=== PATIENT | female | born 1960 | race Caucasian/White ===

== ENCOUNTER 2016-06-19 11:42 | Emergency (ER) | payer MEDICARE, MEDICAID ==
[2016-06-19 12:06] VITALS: BP 137/88
--- NOTE | 2016-06-19 12:44 | UC ---
Lower Extremity/Ankle HPI - HPI Summary HPI Summary: The patient comes in today for: 1. Right ankle/foot pain: Onset: Yesterday. Palliative/provocative: Walking makes it worse. Quality: Ache, throbbing, and shooting at times. Region: Right foot/right ankle. Severity: 6/10 Time: Constant. Associated symptoms: Home treatment: Ice, elevated, and Tylenol. Numbness: None. Previous injury: None except slipping in the mud yesterday. * - History of Current Complaint Chief Complaint: UCLowerExtremity Stated Complaint: ANKLE PAIN Time Seen by Provider: 06/19/16 12:19 Hx Obtained From: Patient Hx Last Menstrual Period: Mirena IUD ?: No - Allergies/Home Medications Allergies/Adverse Reactions: Allergies Allergy/AdvReac Type Severity Reaction Status Date / Time Sulfa Antibiotics Allergy Rash Verified 06/19/16 11:55 Home Medications: Home Medications Amoxicillin/Clavulanate TAB* [Augmentin TAB 500 mg*] 1 tab PO BID 06/19/16 [ History Confirmed 06/19/16] Aspirin [Aspirin Adult Low Dose] 1 tab PO DAILY 06/19/16 [History Confirmed ] Cholecalciferol [Vitamin D] 1 tab PO DAILY 06/19/16 [History Confirmed 06/19/16] Divalproex Sodium [Depakote ER] 3 tab PO BEDTIME 06/19/16 [History Confirmed ] Ferrous Sulfate [Iron (Ferrous Sulfate)] 1 tab PO DAILY 06/19/16 [History Confirmed 06/19/16] Hydrochlorothiazide [Microzide-] 1 tab PO DAILY 06/19/16 [History Confirmed ] [place] Carbonate TAB* 2 tab PO BID 06/19/16 [History Confirmed 06/19/16] Multiple Vitamin [Multi Vitamin] 1 tab PO DAILY 06/19/16 [History Confirmed ] Oxybutynin TAB* [Ditropan TAB*] 1 tab PO TID 06/19/16 [History Confirmed ] QUEtiapine TAB* [Seroquel TAB*] 100 mg PO BEDTIME 06/19/16 [History Confirmed ] PMH/Surg Hx/FS Hx/Imm Hx Previously Healthy: No - hyperactive bladder, sinus infection, IBS, hiatal hernia. Endocrine History Of: Denies: Diabetes, Thyroid Disease, Hyperthyroidism, Hypothyroidism, Dyslipidemia Cardiovascular History Of: Reports: Hypertension Denies: Cardiac Disorders, Pacemaker/ICD, Myocardial Infarction, Congestive Heart Failure, Atrial Fibrillation, Deep Vein Thrombosis, Bleeding Disorders Respiratory History Of: Denies: COPD, Asthma, Bronchitis, Pneumonia, Pulmonary Embolism GI/ History Of: Reports: Gastroesophageal Reflux Denies: Ulcer, Gastrointestinal Bleed, Gall Bladder Disease, Kidney Stones, Diverticulitis, Renal Disease, Urosepsis Neurological History Of: Denies: TIA, CVA, Dementia, Seizures, Migraine Psychological History Of: Reports: Bipolar Disorder Denies: Anxiety, Depression, Schizophrenia, Post Traumatic Stress Disorder Cancer History Of: Denies: Lung Cancer, Colorectal Cancer, Breast Cancer, Prostate Cancer, Cervical Cancer Other History Of: Anticoagulant Therapy - Aspirin for general health. Negative For: HIV, Hepatitis B, Hepatitis C - Surgical History Surgical History: Yes Surgery Procedure, Year, and Place: vericose veins - Family History Known Family History: Positive: Cardiac Disease, Hypertension Negative: Diabetes - Social History Occupation: Disabled - [employer] Alcohol Use: None Substance Use Type: None Smoking Status (MU): Never Smoked Tobacco Review of Systems Constitutional: Negative Skin: Negative Eyes: Negative ENT: Negative Respiratory: Negative Cardiovascular: Negative Gastrointestinal: Negative Genitourinary: Negative Musculoskeletal: Arthralgia All Other Systems Reviewed And Are Negative: Yes Physical Exam Triage Information Reviewed: Yes Appearance: Well-Appearing, No Pain Distress - while sitting., Well-Nourished Vital Signs: Initial Vital Signs Temp 98.2 F 06/19/16 11:59 Pulse 72 06/19/16 11:59 Resp 16 06/19/16 11:59 BP 137/88 06/19/16 11:59 Pulse Ox 98 06/19/16 11:59 Vital Signs Reviewed: Yes Eyes: Positive: Conjunctiva Clear. Negative: Discharge ENT: Positive: Hearing grossly normal. Negative: Pharyngeal erythema, Nasal congestion, Nasal drainage, TM bulging, TM dull, TM red, Tonsillar swelling, Tonsillar exudate Dental: Negative: Gross Decay/Caries @, Dental Fracture @ Neck: Positive: Supple, Nontender, No Lymphadenopathy. Negative: Nuchal Rigidity Respiratory: Positive: Lungs clear, No respiratory distress, No accessory muscle use. Negative: Crackles, Wheezing Cardiovascular: Positive: RRR, No Murmur Abdomen Description: Positive: Nontender, No Organomegaly, Soft. Negative: Distended, Guarding Musculoskeletal: Positive: Strength Intact, ROM Intact, No Edema, Other: - There is tenderness to palpation along the right lateral ankle, but no marked ecchymosis. However, there is minimal plantar flexion on Sher calf compression. However, there is no depression along the Achilles tendon with slight dorsi flexion.. Negative: Strength Limited @ Neurological: Positive: Alert, Muscle Tone Normal Psychological: Positive: Age Appropriate Behavior, Consolable Skin: Negative: rashes, breakdown Diagnostics - Radiology No standard instances Xray Interpretation: No Acute Changes - NO bone abnormalities of the foot or ankel Radiology Interpretation Completed By: Radiologist Lower Extremity Course/Dx - Course Course Of Treatment: Call placed to orthopedics for management of possible Left Achilles tendon rupture. Dr. Ying called back and recommended a CAM Boot and follow up with him. Patient just wants Tylenol as needed for pain. - Differential Dx/Diagnosis Provider Diagnoses: Ankle sprain--right. Possible Achilles tendon injury--right Discharge - Discharge Plan Condition: Stable Disposition: HOME Patient Education Materials: Ankle Sprain (ED), Achilles Tendon Rupture (ED) Referrals: Lucero Marquis MD [Primary Care Provider] - Riky Ying MD [Medical Doctor] - As Soon As Possible (Please contact Dr. Ying's office for a follow-up appointment as soon as possible.) Additional Instructions: Use Tylenol as needed for pain. Where the CAM boot until you see the orthopedic surgeon.
--- NOTE | 2016-06-19 12:50 | RAD ---
INDICATION: Right ankle injury COMPARISON: None TECHNIQUE: AP, lateral, and oblique views were obtained. FINDINGS: There is no acute fracture. The ankle mortise is intact. There is minor lateral soft tissue swelling. There are heel spurs. IMPRESSION: NO ACUTE FRACTURE.
--- NOTE | 2016-06-19 12:51 | RAD ---
INDICATION: Right foot after fall COMPARISON: None TECHNIQUE: AP, lateral, and oblique views were obtained. FINDINGS: There is no acute fracture. There is minor osteophytes but the dorsum of the midfoot. There is a prominent plantar calcaneal spur and a small Achilles calcaneal spur. The soft tissues are normal. IMPRESSION: NO ACUTE BONY FINDINGS.
== END 2016-06-19 13:49 | disposition home or self-care (01) ==
LOC: UCEAST 11:42
DX: S93.401A Sprain of unspecified ligament of right ankle, initial encounter (principal); W18.40XA Slipping, tripping and stumbling without falling, unspecified, initial encounter; Y93.9 Activity, unspecified; Y92.9 Unspecified place or not applicable; I10 Essential (primary) hypertension; Z79.82 Long term (current) use of aspirin; Z88.2 Allergy status to sulfonamides
CPT/HCPCS: 99213; G0463

== ENCOUNTER → 2018-01-15 13:38 | Emergency (ER) | payer MEDICARE, MEDICAID ==
--- NOTE | 2018-01-15 17:18 | UC ---
Lower Extremity/Ankle HPI - HPI Summary HPI Summary: 57 yo female presents with RIGHT ankle/foot pain. She tells me that yesterday she was helping her mother close a window and she tripped and forcefully dorsiflexed her right foot. Since that time has had moderate midfoot pain and mild edema. She is able to ambulate without assistance, but does have a mild limp. She tells me that she had a tendon injury on this foot around this time last year and had PT and a walking boot for many weeks. Denies numbness or tingling. - History of Current Complaint Hx Obtained From: Patient Hx Last Menstrual Period: Mirena IUD Onset/Duration: Sudden Onset Severity Initially: Moderate Severity Currently: Moderate Pain Intensity: 7 Pain Scale Used: 0-10 Numeric Aggravating Factor(s): Standing, Ambulation Able to Bear Weight: Yes - Allergies/Home Medications Allergies/Adverse Reactions: Allergies Allergy/AdvReac Type Severity Reaction Status Date / Time MS Sulfa Antibiotics Allergy Rash Verified 06/19/16 11:55 [Sulfa Antibiotics] PMH/Surg Hx/FS Hx/Imm Hx Cardiovascular History: Hypertension Psychological History: Bipolar Disorder Other History Of: Anticoagulant Therapy - Aspirin for general health. Negative For: HIV, Hepatitis B, Hepatitis C - Surgical History Surgical History: Yes Surgery Procedure, Year, and Place: vericose veins - Family History Known Family History: Positive: Cardiac Disease, Hypertension Negative: Diabetes - Social History Lives: With Family Alcohol Use: None Substance Use Type: None Smoking Status (MU): Never Smoked Tobacco Review of Systems Constitutional: Negative Skin: Negative Respiratory: Negative Cardiovascular: Negative Motor: Negative Neurovascular: Negative Musculoskeletal: Other: - Right foot pain Neurological: Negative Psychological: Negative All Other Systems Reviewed And Are Negative: Yes Physical Exam - Summary Physical Exam Summary: GENERAL: NAD. WDWN. No pain distress. SKIN: No rashes, sores, lesions, or open wounds. CHEST: No accessory muscle use. Breathing comfortably and in no distress. CV: Pulses intact PT and DP. Cap refill <2seconds MSK: RIGHT ANKLE: FROM. NTTP. Negative talar tilt. No increased laxity. RIGHT FOOT: Mild edema overlying navicular with moderate TTP. Strength 5/5. NEURO: Alert. Sensations intact and symmetric B/L LEs PSYCH: Age appropriate behavior. Triage Information Reviewed: Yes Vital Signs Reviewed: Yes Lower Extremity Course/Dx - Course Course Of Treatment: XR: IMPRESSION: SMALL AVULSION FRACTURE FRAGMENT ARISING FROM THE DORSAL NAVICULAR BONE. Pt has a CAM boot from her previous foot injury. Advised to wear this as much as possible. She has seen Dr. Ying in the past and had a good experience with him - advised to schedule a f/u appt with him as soon as possible. - Differential Dx/Diagnosis Provider Diagnoses: SMALL AVULSION FRACTURE FRAGMENT ARISING FROM THE DORSAL NAVICULAR BONE. Discharge - Sign-Out/Discharge Documenting (check all that apply): Patient Departure All imaging exams completed and their final reports reviewed: Yes - Discharge Plan Condition: Stable Disposition: HOME Referrals: Lucero Marquis MD [Primary Care Provider] - Additional Instructions: If you develop a fever, shortness of breath, chest pain, new or worsening symptoms - please call your PCP or go to the ED. 1) Use the CAM boot as much as possible 2) Please schedule a follow up appointment with Dr. Ying of Orthopedics as soon as possible - Billing Disposition and Condition Condition: STABLE Disposition: Home
--- NOTE | 2018-01-15 17:59 | RAD ---
Indication: Right foot pain and swelling. 3 views of the right foot demonstrates no fracture. No other bone or joint abnormalities identified. Inferior calcaneal spur is noted. IMPRESSION: No fracture of the right foot is noted. Inferior calcaneal spur is noted.
--- NOTE | 2018-01-15 18:00 | RAD ---
INDICATION: Right ankle injury. TECHNIQUE: 3 views of the right ankle were obtained. FINDINGS: There is diffuse soft tissue swelling. There is a small curvilinear avulsion fracture fragment arising from the dorsal navicular bone measuring 3 mm in size which is slightly distracted. No other acute fractures are seen. Joint spaces appear maintained. IMPRESSION: SMALL AVULSION FRACTURE FRAGMENT ARISING FROM THE DORSAL NAVICULAR BONE.
== END | disposition home or self-care (01) ==
LOC: UCEAST 13:38
DX: S92.251A Displaced fracture of navicular [scaphoid] of right foot, initial encounter for closed fracture (principal); W18.40XA Slipping, tripping and stumbling without falling, unspecified, initial encounter; Y93.9 Activity, unspecified; Y92.9 Unspecified place or not applicable; Z88.2 Allergy status to sulfonamides
CPT/HCPCS: 99211; G0463

== ENCOUNTER → 2018-09-05 13:44 | Emergency (ER) | payer MEDICARE, MEDICAID ==
[~2018-09-05 13:44] MED LIST: Iohexol 300* (CONTRAST) 10 ML SDV IV ONE; Morphine 4 MG/ML VIAL (1 ml) 4 MG/ML VIAL IV ONE; Ondansetron INJ* 2 MG/ML VIAL IV ONE; Ondansetron INJ* 2 MG/ML VIAL ONE; cefTRIAXone(*) 1 GM in NS 0.9% 50 ML* 50 ML IVPB ONE; oxyCODONE/Acetamin 5/325 MG* TAB PO ONE
[2018-09-05 14:20] LABS: ABS Basophils 0.1 10^3/ul (0-0.2); ABS Lymphocytes 1.1 10^3/ul (1.0-4.8); ABS Monocytes 1.3 10^3/ul (0-0.8); ABS Neutrophils 10.5 10^3/ul (1.5-7.7); Eosinophil % 0.1 %; Hematocrit 40 % (35-47); Hemoglobin 13.5 g/dL (12.0-16.0); Lymphocyte % 8.6 %; Mean Corpuscular HGB Conc 34 g/dL (31-36); Mean Corpuscular Hemoglobin 34 pg (27-31); Mean Corpuscular Volume 101 fL (80-97); Mean Platelet Volume 7.9 fL (7.4-10.4); Platelet Count 186 10^3/uL (150-450); Red Blood Count 3.97 10^6 /uL (3.70-4.87); Red Cell Distribution Width 13 % (10.5-15)
[2018-09-05 14:37] LABS: ALT 9 U/L (7-52); AST 8 U/L (13-39); Albumin 4.5 g/dL (3.2-5.2); Albumin/Globulin Ratio 1.6 (1-3); Alkaline Phosphatase 67 U/L (34-104); Anion Gap 7 mmol/L (2-11); BUN/Creatinine Ratio 12.6 (8-20); Blood Urea Nitrogen 11 mg/dL (6-24); C Reactive Protein 159.01 mg/L (<8.01); CO2 Carbon Dioxide 27 mmol/L (22-32); Calcium 11.4 mg/dL (8.6-10.3); Chloride 106 mmol/L (101-111); EGFR African American 81.5 (>60); EGFR Non-African American 67.4 (>60); Globulin 2.9 g/dL (2-4); Glucose 123 mg/dL (70-100); Potassium 3.8 mmol/L (3.5-5.0); Sodium 140 mmol/L (135-145); Total Protein 7.4 g/dL (6.4-8.9)
--- NOTE | 2018-09-05 15:02 | ED ---
Abdominal Pain/Female - HPI Summary HPI Summary: This patient is a 58 year old F presenting to [facility] with a chief complaint of persistent nausea and vomiting with LLQ abdominal pain since last night. Reports low grade fever. Patient has been unable to eat. She has not had a BM today. Reports hx of IBS. She states her current symptoms are different from her IBS flare ups. Pain is rated 10/10 in severity. Pain is improved by laying flat. Denies diarrhea. Patient is scheduled for bladder polyp removal on with Dr. Caldwell. - History of Current Complaint Chief Complaint: EDAbdPain Stated Complaint: SEVERE ABD PAIN PER PT Time Seen by Provider: 09/05/18 14:30 Hx Obtained From: Patient Hx Last Menstrual Period: post menapausal Onset/Duration: Gradual Onset, Lasting Days Timing: Constant Severity Initially: Mild Severity Currently: Severe Pain Intensity: 10 Pain Scale Used: 0-10 Numeric Location: Discrete At: LUQ, Discrete At: LLQ Radiates: No Alleviating Factor(s): Position Associated Signs and Symptoms: Positive: Decreased Appetite, Nausea, Vomiting. Negative: Diarrhea Allergies/Adverse Reactions: Allergies Allergy/AdvReac Type Severity Reaction Status Date / Time Sulfa (Sulfonamide Allergy Rash Verified 09/05/18 13:52 Antibiotics) PMH/Surg Hx/FS Hx/Imm Hx Endocrine/Hematology History: Reports: Hx Anticoagulant Therapy - Aspirin for general health. Denies: Hx Diabetes, Hx Thyroid Disease Cardiovascular History: Reports: Hx Hypertension Denies: Hx Congestive Heart Failure, Hx Deep Vein Thrombosis, Hx Myocardial Infarction, Hx Pacemaker/ICD Respiratory History: Denies: Hx Asthma, Hx Chronic Obstructive Pulmonary Disease (COPD), Hx Lung Cancer, Hx Pneumonia, Hx Pulmonary Embolism GI History: Reports: Hx Hiatal Hernia, Hx Irritable Bowel Denies: Hx Gall Bladder Disease, Hx Gastrointestinal Bleed, Hx Ulcer, Hx Urosepsis History: Denies: Hx Kidney Stones, Hx Renal Disease Neurological History: Denies: Hx Dementia, Hx Migraine, Hx Seizures, Hx Transient Ischemic Attacks (TIA) Psychiatric History: Reports: Hx Bipolar Disorder Denies: Hx Anxiety, Hx Depression, Hx Schizophrenia - Surgical History Surgery Procedure, Year, and Place: vericose veins Infectious Disease History: No Infectious Disease History: Denies: Traveled Outside the [place] in Last 30 Days - Family History Known Family History: Positive: Cardiac Disease, Hypertension Negative: Diabetes - Social History Alcohol Use: None Substance Use Type: Reports: None Smoking Status (MU): Never Smoked Tobacco Review of Systems Positive: Fever Positive: Abdominal Pain, Vomiting, Nausea. Negative: Diarrhea All Other Systems Reviewed And Are Negative: Yes Physical Exam - Summary Physical Exam Summary: Appearance: Well-appearing, Well-nourished, lying in bed comfortably Skin: Warm, dry, no obvious rash Eyes: sclera anicteric, no conjunctival pallor ENT: mucous membranes moist, pharynx appears normal Neck: Supple, nontender Respiratory: Clear to auscultation, no signs of respiratory distress Cardiovascular: Normal S1, S2. No murmurs. Normal distal pulses in tibial and radial bilaterally. Abdomen: Soft, normal active bowel sounds present Left sided tenderness with guarding and rebound worse in LLQ Musculoskeletal: Normal, Strength/ROM Intact Neurological: A&Ox3, awake and alert, mentation is normal, speech is fluent and appropriate Psychiatric: affect is normal, does not appear anxious or depressed Triage Information Reviewed: Yes Vital Signs On Initial Exam: Initial Vitals Temp Pulse Resp BP Pulse Ox 98.3 F 79 18 147/93 99 09/05/18 13:52 09/05/18 13:52 09/05/18 13:52 09/05/18 13:52 09/05/18 13:52 Vital Signs Reviewed: Yes Diagnostics - Vital Signs Vital Signs Temp Pulse Resp BP Pulse Ox 09/05/18 13:52 98.3 F 79 18 147/93 99 - Laboratory Lab Results: Lab Results 09/05/18 09/05/18 Range/Units 14:10 14:10 WBC 13.0 H (3.5-10.8) 10^3/uL RBC 3.97 (3.70-4.87) 10^6 /uL Hgb 13.5 (12.0-16.0) g/dL Hct 40 (35-47) % MCV 101 H (80-97) fL MCH 34 H (27-31) pg MCHC 34 (31-36) g/dL RDW 13 (10.5-15) % Plt Count 186 (150-450) 10^3/uL MPV 7.9 (7.4-10.4) fL Neut % (Auto) 80.7 % Lymph % (Auto) 8.6 % [place] % (Auto) 10.2 % Eos % (Auto) 0.1 % Baso % (Auto) 0.4 % Absolute Neuts (auto) 10.5 H (1.5-7.7) 10^3/ul Absolute Lymphs (auto) 1.1 (1.0-4.8) 10^3/ul Absolute Monos (auto) 1.3 H (0-0.8) 10^3/ul Absolute Eos (auto) 0.0 (0-0.6) 10^3/ul Absolute Basos (auto) 0.1 (0-0.2) 10^3/ul Absolute Nucleated RBC 0.0 10^3/ul Nucleated RBC % 0.0 Sodium 140 (135-145) mmol/L Potassium 3.8 (3.5-5.0) mmol/L Chloride 106 (101-111) mmol/L Carbon Dioxide 27 (22-32) mmol/L Anion Gap 7 (2-11) mmol/L BUN 11 (6-24) mg/dL Creatinine 0.87 (0.51-0.95) mg/dL Est GFR ( Amer) 81.5 (>60) Est GFR (Non-Af Amer) 67.4 (>60) BUN/Creatinine Ratio 12.6 (8-20) Glucose 123 H (70-100) mg/dL Calcium 11.4 H (8.6-10.3) mg/dL Total Bilirubin 0.80 (0.2-1.0) mg/dL AST 8 L (13-39) U/L ALT 9 (7-52) U/L Alkaline Phosphatase 67 (34-104) U/L C-Reactive Protein 159.01 H (<8.01) mg/L Total Protein 7.4 (6.4-8.9) g/dL Albumin 4.5 (3.2-5.2) g/dL Globulin 2.9 (2-4) g/dL Albumin/Globulin Ratio 1.6 (1-3) Lipase < 10 L (11.0-82.0) U/L Result Diagrams: 09/05/18 14:10 09/05/18 14:10 Lab Statement: Any lab studies that have been ordered have been reviewed, and results considered in the medical decision making process. - CT A/P CT Interpretation Completed By: Radiologist Summary of CT Findings: 1. THERE IS LEFT PERINEPHRIC STRANDING, INCREASED ENHANCEMENT AND THICKENING OF THE LEFT. RENAL PELVIS AND URETER SUGGESTING THE POSSIBILITY OF PYELONEPHRITIS OR LESS LIKELY RECENT. PASSAGE OF A CALCULUS. RECOMMEND CLINICAL CORRELATION. 2. 2 MM NONOBSTRUCTING LEFT RENAL CALCULUS AND LARGE PERIPELVIC LEFT RENAL CYSTS. 3. HEPATIC STEATOSIS. ED Physician has reviewed this report. Re-Evaluation - Re-Evaluation 1 Re-Evaluation Time: 16:00 Change: Improved - Pain has improved. Abdominal Pain Fem Course/Dx - Course Course Of Treatment: 58 year old F with a chief complaint of persistent nausea and vomiting with LLQ abdominal pain since last night. Patient is scheduled for bladder polyp removal on 09/11/[address] Caldwell. Patient given IV fluids, zofran, and morphine with relief of symptoms. Bloodwork and UA reveal WBC of 13. CT A/P reveals, " 1. THERE IS LEFT PERINEPHRIC STRANDING, INCREASED ENHANCEMENT AND THICKENING OF THE LEFT. RENAL PELVIS AND URETER SUGGESTING THE POSSIBILITY OF PYELONEPHRITIS OR LESS LIKELY RECENT. PASSAGE OF A CALCULUS. RECOMMEND CLINICAL CORRELATION. 2. 2 MM NONOBSTRUCTING LEFT RENAL CALCULUS AND LARGE PERIPELVIC LEFT RENAL CYSTS. 3. HEPATIC STEATOSIS." Case discussed with Dr. Caldwell who recommends 2g of IV rocephin and discharge with oral abx to follow up in his office. Results and plan discussed with patient who agrees. Discharged with rx fo augmentin and oxycodone. - Diagnoses Provider Diagnoses: Pyelonephritis - Provider Notifications Discussed Care Of Patient With: Gustavo Caldwell - urology Time Discussed With Above Provider: 19:36 Instructed by Provider To: Other - 2g IV rocephin, DC with oral abx, and follow up in office. Discharge - Sign-Out/Discharge Documenting (check all that apply): Patient Departure - discharge - Discharge Plan Condition: Stable Disposition: HOME Prescriptions: Amoxicillin/Clavulanate TAB* [Augmentin TAB 875*] 875 mg PO BID #20 tab oxyCODONE/Acetamin 5/325 MG* [Percocet 5/325 TAB*] 1 tab PO Q4H PRN #15 tab MDD 6 tabs PRN Reason: Pain Patient Education Materials: Kidney Infection (ED) Forms: *Work Release Referrals: Gustavo Caldwell MD [Medical Doctor] - 3 Days - Attestation Statements Document Initiated by Scribe: Yes Documenting Scribe: Mirna Reyna Provider For Whom Scribe is Documenting (Include Credential): Gil Coreas MD Scribe Attestation: IMirna, scribed for Gil Coreas MD on 09/05/18 at 2000. Status of Scribe Document: Ready
[2018-09-05] MEDS: NS 0.9% 1000 ML** 2,000 ML IV ONE (15:41)
[2018-09-05 16:22] LABS: Urine Appearance Cloudy; Urine Bacteria 1+ (Absent); Urine Bilirubin Negative (Negative); Urine Blood 2+ (Negative); Urine Color Yellow; Urine Glucose Negative (Negative); Urine Ketones Negative (Negative); Urine Nitrite Negative (Negative); Urine Protein 2+(100 mg/dL) (Negative); Urine Red Blood Cell 2+(6-10/hpf) (Absent); Urine Specific Gravity 1.008 (1.010-1.030); Urine Squamous Epithelial Cell Present (Absent); Urine Urobilinogen Negative (Negative); Urine White Blood Cell 3+(>20/hpf) (Absent)
[2018-09-05 21:04] VITALS: BP 111/70
--- NOTE | 2018-09-08 08:19 | PN ---
Progress Note - Progress Note Date of Service: 09/05/18 Note: Patient urine culture preliminary grew strep mitis/strep oralis This is gram-positive Patient placed on Augmentin prior to discharge Nothing further is required Await sensitivities
== END | disposition home or self-care (01) ==
LOC: ED 13:44
DX: N12 Tubulo-interstitial nephritis, not specified as acute or chronic (principal); I10 Essential (primary) hypertension; Z88.2 Allergy status to sulfonamides
CPT/HCPCS: 36415; 74177; 80053; 81003; 81015; 83690; 85025; 86140; 87086; 96361; 96374; 96375; 96376; 99282; A9270-GY; J0696; J2270; J2405; Q9967